=== PATIENT | female | born 1960 | race Two or more races ===

== ENCOUNTER 2017-09-17 10:47 | Outpatient (RCR) | payer OTHER | END 2017-09-18 | LOC: PT 10:47 | PROVIDERS: ATTEND Specialist | DX: M54.2 Cervicalgia (principal); M75.102 Unspecified rotator cuff tear or rupture of left shoulder, not specified as traumatic; M77.8 Other enthesopathies, not elsewhere classified ==

== ENCOUNTER 2017-09-21 09:54 | Outpatient (RCR) | payer OTHER | END 2017-10-18 | LOC: PT 09:54 | PROVIDERS: ATTEND Specialist | DX: M54.2 Cervicalgia (principal); M25.512 Pain in left shoulder; M25.612 Stiffness of left shoulder, not elsewhere classified; M62.81 Muscle weakness (generalized); M77.8 Other enthesopathies, not elsewhere classified ==

== ENCOUNTER 2018-03-31 17:53 | Emergency (ER) | payer OTHER ==
[~2018-03-31] VITALS: Ht 154.9 cm; Wt 59.0 kg
[2018-03-31] MEDS ORDERED: FLUORESCEIN SOD(OPTH) 1 MG STRP OP ONE (18:15)
[2018-03-31] MEDS ORDERED: PROPARACAINE HCL 0.5% OP SOLN 15 ML BTL OP ONE (18:15)
[2018-03-31] MEDS ORDERED: TETRACAINE HCL 0.5% OPTH SOLN 4 ML BTL ONE (20:37)
[2018-03-31] MEDS ORDERED: EYE IRRIGATION (OPTH) 120 ML BTL ONE (20:38)
[2018-03-31] MEDS ORDERED: TETRACAINE HCL 0.5% OPTH SOLN 4 ML BTL OP ONE (20:45)
== END 2018-03-31 21:10 | disposition home or self-care (01) ==
LOC: ER 17:53
DX: H11.32 Conjunctival hemorrhage, left eye (principal); I10 Essential (primary) hypertension
CPT/HCPCS: 99282

== ENCOUNTER → 2021-07-01 | Outpatient (CLI) | payer OTHER | LOC: MRI 09:02 | PROVIDERS: ATTEND Specialist | DX: S83.241A Other tear of medial meniscus, current injury, right knee, initial encounter (principal) ==

== ENCOUNTER → 2024-08-23 | Day surgery (SDC) | payer MEDICARE, OTHER ==
[~2024-08-23] MED LIST: AMBIEN10 MG PO; AMLODIPINE-OLM1 EACH PO; ASPIRIN EC81 MG PO; CENTRUM SILVER1 EAC8 PO; CITRACAL + D M1 EACH PO; EQUATE ALLERGY PO; ESTRACE42.5 GM VG; FLONASE ALLERG9.9 ML INH; GLUCAGON FOR INJ 1 MG VIAL ONE; HAIR SKIN NAIL1 EACH PO; LACTATED RINGER'S 1,000 ML ONE; MAGNESIUM100 MG PEG; PROPOFOL IV EMULSION 10 MG/ML 20 ML VIAL ONE; VITAMIN B12500 MCG PO; VITAMIN C 500500 MG PO; VITAMIN E400 UNI1 PO; ZINC50 MG PO; [UNRECOGNIZED DRUG - OTHER] PO
[2024-08-23 09:50] VITALS: BP 112/80; PULSE 82; RESP 17; O2SAT 98
== END | disposition home or self-care (01) ==
LOC: OR 07:35
PROVIDERS: ATTEND Internal Medicine Gastroenterology
DX: Z12.11 Encounter for screening for malignant neoplasm of colon (principal); K63.5 Polyp of colon; K57.30 Diverticulosis of large intestine without perforation or abscess without bleeding; K64.8 Other hemorrhoids; K21.9 Gastro-esophageal reflux disease without esophagitis; K44.9 Diaphragmatic hernia without obstruction or gangrene; Z71.3 Dietary counseling and surveillance; I10 Essential (primary) hypertension; Z71.89 Other specified counseling; G47.00 Insomnia, unspecified; E78.5 Hyperlipidemia, unspecified; Z79.82 Long term (current) use of aspirin; Z79.899 Other long term (current) drug therapy; Z68.29 Body mass index [BMI] 29.0-29.9, adult
CPT/HCPCS: 45385; J1610; J2704; J7121; 45378